=== PATIENT | female | born 1945 | race Caucasian/White ===

== ENCOUNTER 2021-12-08 16:04 | Inpatient (IN) ==
[2021-12-08] MEDS ORDERED: DILTIAZEM 50 MG/10 ML VIAL IV STA (16:16)
[2021-12-08] MEDS ORDERED: SODIUM CHLORIDE 0.9% 1,000 ML IV STA (16:16)
[2021-12-08] MEDS: DILTIAZEM INJ 100 MG in SODIUM CHLORIDE 0.9% 100 ML IV SCH ×2 (16:38→23:51)
[2021-12-08 16:47] LABS: Basophils % 0.2 % (0.0-0.8); Eosinophils # 0.1 10*3/uL (0.0-0.87); Eosinophils % 0.8 % (0.00-10.9); Hematocrit 46.4 VOL% (35.7-47.0); Hemoglobin 14.6 GM/DL (12.0-16.0); Immature Granulocytes % 0.6 %; Immature Granulocytes Absolute 0.05 #; Lymphocytes % 23.4 % (21.3-54.2); Mean Corpuscular HGB Conc 31.5 GM/DL (32-36); Mean Corpuscular Volume 101.5 FL (87-102); Mean Platelet Volume 10.8 FL (9.6-12.0); Monocytes % 8.4 % (1.7-12.7); NRBC # 0.02 10*3/uL; Neutrophils % 66.6 % (38.7-73.9); Platelet Count 388 T/CUMM (130-400); Red Blood Count 4.57 MC/CUMM (3.8-5.5); Red Cell Distribution Width 15.7 % (9.3-17.3); White Blood Count 8.6 T/CUMM (4-12)
[2021-12-08 17:18] LABS: INR 1.1; PT Patient Result 11.9 SECS (10.5-12.0); Partial Thromboplastin Time 26.4 SECS (23.8-32.1)
[2021-12-08 17:41] LABS: Bacteria,Urine Occasional /HPF (Few); Hyaline Casts,Urine 4 /LPF (0-3); Mucus,Urine Occasional /LPF (Occasional); RBC,Urine 2 /HPF (0-4)
[2021-12-08 17:42] LABS: Bilirubin,Urine Small mg/dL (Negative); Blood, Urine Trace mg/dL (Negative); Glucose,Urine (UA) Negative (Negative); Ketones,Urine Negative (Negative); Nitrite,Urine Negative (Negative); Protein,Urine 2+ mg/dL (Negative); Urine Appearance Clear (Clear); Urine Color Yellow (Yellow); Urine Specific Gravity 1.025 (1.001-1.035); Urine pH 5.5 (4.5-8.0)
[2021-12-08 18:32] LABS: Calcium 8.6 MG/DL (8.5-10.1)
[2021-12-08 18:33] LABS: Albumin 3.6 G/DL (3.4-5.0); Bilirubin,Total 0.9 MG/DL (0.20-1.00); Osmolality,Calculated 284.7 MOS/KG (273-304); Potassium 4.3 MMOL/L (3.5-5.1); Thyroid Stimulating Hormone 20.4 uIU/ml (0.358-3.74); Total Protein 7.1 G/DL (6.4-8.2)
[2021-12-08] MEDS ORDERED: GLUCAGON 1 MG VIAL IM PRN (20:34)
[2021-12-08] MEDS ORDERED: DEXTROSE 10% 250 ML BAG IV PRN (20:38)
[2021-12-08] MEDS ORDERED: ATORVASTATIN 20 MG TABLET PO SCH (21:00)
[2021-12-08] MEDS ORDERED: APIXABAN 2.5 MG TABLET PO SCH (21:00)
[2021-12-08] MEDS: METOPROLOL TARTRATE 25 MG TABLET PO SCH (21:50)
[2021-12-08] MEDS: ENOXAPARIN 40 MG/0.4 ML SYRINGE SUBCUT SCH (21:51)
[2021-12-09] MEDS ORDERED: OLANZapine 5 MG TABLET PO ONE (01:10)
[2021-12-09] MEDS ORDERED: SODIUM CHLORIDE 0.9% 500 ML IV STA (02:35)
[2021-12-09 04:14] LABS: Basophils % 0.3 % (0.0-0.8); Eosinophils # 0.1 10*3/uL (0.0-0.87); Eosinophils % 0.8 % (0.00-10.9); Hematocrit 46.4 VOL% (35.7-47.0); Hemoglobin 14.2 GM/DL (12.0-16.0); Immature Granulocytes % 0.8 %; Immature Granulocytes Absolute 0.08 #; Lymphocytes # 1.2 10*3/uL (1.4-4.0); Lymphocytes % 12.2 % (21.3-54.2); Mean Corpuscular HGB Conc 30.6 GM/DL (32-36); Mean Corpuscular Volume 103.3 FL (87-102); Mean Platelet Volume 10.3 FL (9.6-12.0); Monocytes % 8.6 % (1.7-12.7); NRBC # 0.04 10*3/uL; Neutrophils % 77.3 % (38.7-73.9); Platelet Count 327 T/CUMM (130-400); Red Blood Count 4.49 MC/CUMM (3.8-5.5); Red Cell Distribution Width 15.7 % (9.3-17.3); White Blood Count 9.6 T/CUMM (4-12)
[2021-12-09] MEDS: LEVOTHYROXINE 100 MCG TABLET PO SCH (06:30)
[2021-12-09 07:10] LABS: Albumin 3.1 G/DL (3.4-5.0); Calcium 8.4 MG/DL (8.5-10.1); Potassium 4.3 MMOL/L (3.5-5.1); Risk Ratio 6.59; Total Protein 6.7 G/DL (6.4-8.2); VLDL Cholesterol 22.4 MG/DL
[2021-12-09] MEDS: SODIUM BICARB INJ 100 MEQ in DEXTROSE 5% 1,000 ML IV SCH ×3 (08:27→22:54)
[2021-12-09] MEDS ORDERED: PANTOPRAZOLE 40 MG TABLET PO SCH (09:00)
[2021-12-09] MEDS ORDERED: LEVOTHYROXINE 88 MCG TABLET PO SCH (09:00)
[2021-12-09 09:27] LABS: Hepatitis B Surface Ag Quant < 0.10 Index; Hepatitis B Surface Ag Result Non-Reactive (NonReactive); Hepatitis C Virus Ab Quant 0.03 Index; Hepatitis C Virus Ab Result Non-Reactive (NonReactive)
[2021-12-09 10:13] LABS: Barbiturates Screen,Urine Negative (Negative); Benzodiazepines Screen,Urine Negative (Negative); Cannabinoid Screen,Urine Negative (Negative); Opiate Screen,Urine Negative (Negative); Phencyclidine Screen,Urine Negative (Negative)
[2021-12-09] MEDS: PANTOPRAZOLE 40 MG TABLET PO SCH (10:47)
[2021-12-09] MEDS: SERTRALINE 25 MG TABLET PO SCH (10:47)
[2021-12-09] MEDS: METOPROLOL TARTRATE 25 MG TABLET PO SCH ×2 (10:47→20:25)
[2021-12-09] MEDS: ENOXAPARIN 40 MG/0.4 ML SYRINGE SUBCUT SCH ×2 (10:48→20:27)
[2021-12-09] MEDS: DILTIAZEM 30 MG TABLET PO SCH ×3 (12:29→23:05)
[2021-12-09] MEDS: ASPIRIN EC 81 MG TABLET PO SCH (12:29)
[2021-12-09] MEDS ORDERED: DIGOXIN 0.5 MG/2 ML AMP IV ONE (13:50)
[2021-12-09] MEDS ORDERED: METOPROLOL TARTRATE 25 MG TABLET PO ONE (16:28)
[2021-12-09] MEDS ORDERED: TUBERCULIN SKIN TEST 0.1 ML SYRINGE INTRADERM ONE (17:08)
[2021-12-09] MEDS ORDERED: DILTIAZEM CD 120 MG CAPSULE PO SCH (21:00)
[2021-12-10 05:35] LABS: Basophils % 0.3 % (0.0-0.8); Eosinophils # 0.1 10*3/uL (0.0-0.87); Eosinophils % 1.6 % (0.00-10.9); Hematocrit 31.4 VOL% (35.7-47.0); Immature Granulocytes % 0.3 %; Immature Granulocytes Absolute 0.02 #; Lymphocytes # 0.7 10*3/uL (1.4-4.0); Lymphocytes % 9.9 % (21.3-54.2); Mean Corpuscular HGB Conc 31.8 GM/DL (32-36); Mean Corpuscular Volume 100.3 FL (87-102); Monocytes % 8.7 % (1.7-12.7); Neutrophils % 79.2 % (38.7-73.9); Platelet Count 231 T/CUMM (130-400); Red Blood Count 3.13 MC/CUMM (3.8-5.5); Red Cell Distribution Width 15.2 % (9.3-17.3); White Blood Count 6.9 T/CUMM (4-12)
[2021-12-10 05:59] LABS: Bilirubin,Total 0.6 MG/DL (0.20-1.00); Calcium 6.5 MG/DL (8.5-10.1); Osmolality,Calculated 295.2 MOS/KG (273-304); Potassium 2.6 MMOL/L (3.5-5.1); Total Protein 4.5 G/DL (6.4-8.2)
[2021-12-10] MEDS: DILTIAZEM 30 MG TABLET PO SCH ×2 (06:07→11:34)
[2021-12-10] MEDS: LEVOTHYROXINE 100 MCG TABLET PO SCH (06:08)
[2021-12-10 07:21] LABS: Albumin 2.3 G/DL (3.4-5.0); Bilirubin,Total 0.7 MG/DL (0.20-1.00); Calcium 7.8 MG/DL (8.5-10.1); Osmolality,Calculated 284.3 MOS/KG (273-304); Potassium 3.1 MMOL/L (3.5-5.1)
[2021-12-10] MEDS ORDERED: POTASSIUM CHLORIDE 20 MEQ TABLET PO ONE ×2 (07:43→14:31)
[2021-12-10] MEDS: METOPROLOL TARTRATE 25 MG TABLET PO SCH (09:29)
[2021-12-10] MEDS: PANTOPRAZOLE 40 MG TABLET PO SCH (09:29)
[2021-12-10] MEDS: SERTRALINE 25 MG TABLET PO SCH (09:29)
[2021-12-10] MEDS: metroNIDAZOLE INJ 500 MG/100 ML PREMIX IV SCH ×2 (09:30→18:14)
[2021-12-10] MEDS: LEVOFLOXACIN INJ 500 MG/100 ML PREMIX IV SCH (09:30)
[2021-12-10] MEDS: ENOXAPARIN 40 MG/0.4 ML SYRINGE SUBCUT SCH ×2 (09:30→21:07)
[2021-12-10] MEDS: ASPIRIN EC 81 MG TABLET PO SCH (09:32)
[2021-12-10] MEDS: SODIUM BICARB INJ 100 MEQ in DEXTROSE 5% 1,000 ML IV SCH (11:34)
[2021-12-10] MEDS ORDERED: DIGOXIN 0.5 MG/2 ML AMP IV ONE (15:52)
[2021-12-10] MEDS ORDERED: MAGNESIUM SULF RIDER 2 GM/50 ML PREMIX IV ONE (15:52)
[2021-12-10] MEDS: METOPROLOL TARTRATE 50 MG TABLET PO SCH ×2 (16:51→21:06)
[2021-12-11] MEDS: metroNIDAZOLE INJ 500 MG/100 ML PREMIX IV SCH ×3 (02:04→16:51)
[2021-12-11 05:35] LABS: Basophils % 0.3 % (0.0-0.8); Eosinophils # 0.1 10*3/uL (0.0-0.87); Eosinophils % 0.9 % (0.00-10.9); Immature Granulocytes % 0.9 %; Immature Granulocytes Absolute 0.06 #; Lymphocytes # 0.5 10*3/uL (1.4-4.0); Lymphocytes % 8.2 % (21.3-54.2); Mean Corpuscular HGB Conc 28.8 GM/DL (32-36); Mean Corpuscular Volume 106.8 FL (87-102); NRBC # 0.03 10*3/uL; Neutrophils % 78.7 % (38.7-73.9); Red Blood Count 2.34 MC/CUMM (3.8-5.5); Red Cell Distribution Width 15.4 % (9.3-17.3); White Blood Count 6.5 T/CUMM (4-12)
[2021-12-11 05:36] LABS: Hemoglobin 7.2 GM/DL (12.0-16.0); Platelet Count 167 T/CUMM (130-400)
[2021-12-11] MEDS: LEVOTHYROXINE 100 MCG TABLET PO SCH (05:46)
[2021-12-11 06:18] LABS: Albumin 2.1 G/DL (3.4-5.0); Bilirubin,Total 0.7 MG/DL (0.20-1.00); Calcium 7.1 MG/DL (8.5-10.1); Osmolality,Calculated 284.4 MOS/KG (273-304); Potassium 4.4 MMOL/L (3.5-5.1); Total Protein 5.1 G/DL (6.4-8.2)
[2021-12-11 06:21] LABS: Eosinophils 1 % (0-10); Hypochromia 1+; Lymphocytes 12 % (20-55); Microcytosis 1+; Platelet Estimate Adequate; Segmented Neutrophils 77 % (50-85); Total Cells Counted 100
[2021-12-11 09:24] LABS: Hematocrit 39.8 VOL% (35.7-47.0); Hemoglobin 12.2 GM/DL (12.0-16.0)
[2021-12-11] MEDS: LEVOFLOXACIN INJ 500 MG/100 ML PREMIX IV SCH (09:36)
[2021-12-11] MEDS: ENOXAPARIN 40 MG/0.4 ML SYRINGE SUBCUT SCH ×2 (09:37→20:41)
[2021-12-11] MEDS: METOPROLOL TARTRATE 50 MG TABLET PO SCH ×3 (09:37→23:09)
[2021-12-11] MEDS: PANTOPRAZOLE 40 MG TABLET PO SCH (09:37)
[2021-12-11] MEDS: SERTRALINE 25 MG TABLET PO SCH (09:37)
[2021-12-11] MEDS: ASPIRIN EC 81 MG TABLET PO SCH (09:38)
[2021-12-11 09:41] LABS: % Iron Saturation 8.6 % (18-50); Ferritin 63.2 ng/mL (8-252)
[2021-12-11 09:42] LABS: Folate 10.64 NG/ML (5.38-24.0)
[2021-12-11] MEDS ORDERED: MAGNESIUM SULF RIDER 2 GM/50 ML PREMIX IV ONE (13:07)
[2021-12-11] MEDS: DIGOXIN 0.125 MG TABLET PO SCH (14:12)
[2021-12-11 14:23] LABS: Calcium 8.4 MG/DL (8.5-10.1); Osmolality,Calculated 280.5 MOS/KG (273-304); Potassium 4.4 MMOL/L (3.5-5.1)
[2021-12-11 18:05] LABS: Bilirubin,Urine Small mg/dL (Negative); Glucose,Urine (UA) Negative (Negative); Ketones,Urine Trace mg/dL (Negative); Nitrite,Urine Positive (Negative); Protein,Urine 100 mg/dL (Negative); RBC,Urine 3879 /HPF (0-4); Urine Appearance Clear (Clear); Urine Color Yellow (Yellow); Urine Specific Gravity 1.025 (1.001-1.035); Urine pH 5.5 (4.5-8.0)
[2021-12-11 18:06] LABS: Blood, Urine Large mg/dL (Negative)
[2021-12-11 19:25] LABS: Hematocrit 41.3 VOL% (35.7-47.0); Hemoglobin 12.7 GM/DL (12.0-16.0)
[2021-12-12] MEDS: metroNIDAZOLE INJ 500 MG/100 ML PREMIX IV SCH (01:09)
[2021-12-12] MEDS ORDERED: methylPREDNISolone SOD SUC 40 MG/1 ML VIAL IV ONE (04:10)
[2021-12-12] MEDS: ALBUTEROL/IPRATROPIUM 3 ML NEB RESP TX SCH ×4 (04:36→19:10)
[2021-12-12 04:37] LABS: Basophils % 0.3 % (0.0-0.8); Eosinophils # 0.1 10*3/uL (0.0-0.87); Eosinophils % 0.8 % (0.00-10.9); Hematocrit 37.7 VOL% (35.7-47.0); Hemoglobin 11.4 GM/DL (12.0-16.0); Immature Granulocytes % 0.6 %; Immature Granulocytes Absolute 0.06 #; Lymphocytes # 1.1 10*3/uL (1.4-4.0); Lymphocytes % 10.5 % (21.3-54.2); Mean Corpuscular HGB Conc 30.2 GM/DL (32-36); Mean Corpuscular Volume 103.6 FL (87-102); Mean Platelet Volume 10.2 FL (9.6-12.0); Monocytes % 11.8 % (1.7-12.7); Platelet Count 264 T/CUMM (130-400); Red Blood Count 3.64 MC/CUMM (3.8-5.5); White Blood Count 10.5 T/CUMM (4-12)
[2021-12-12 04:57] LABS: Calcium 8.2 MG/DL (8.5-10.1); Potassium 4.2 MMOL/L (3.5-5.1)
[2021-12-12] MEDS: LEVOTHYROXINE 100 MCG TABLET PO SCH (06:21)
[2021-12-12 06:34] LABS: Albumin 2.4 G/DL (3.4-5.0); Bilirubin,Total 0.9 MG/DL (0.20-1.00); Calcium 8.3 MG/DL (8.5-10.1); Osmolality,Calculated 275.8 MOS/KG (273-304); Potassium 4.3 MMOL/L (3.5-5.1); Total Protein 5.9 G/DL (6.4-8.2)
[2021-12-12] MEDS: PANTOPRAZOLE 40 MG TABLET PO SCH (09:35)
[2021-12-12] MEDS: METOPROLOL TARTRATE 50 MG TABLET PO SCH ×2 (09:35→15:51)
[2021-12-12] MEDS: SERTRALINE 25 MG TABLET PO SCH (09:35)
[2021-12-12] MEDS: ASPIRIN EC 81 MG TABLET PO SCH (09:35)
[2021-12-12] MEDS: LEVOFLOXACIN INJ 500 MG/100 ML PREMIX IV SCH (09:35)
[2021-12-12] MEDS: ENOXAPARIN 40 MG/0.4 ML SYRINGE SUBCUT SCH ×2 (09:36→22:28)
[2021-12-12] MEDS: DIGOXIN 0.125 MG TABLET PO SCH (13:20)
[2021-12-12] MEDS: METOPROLOL SUCCINATE XL 25 MG TABLET PO SCH (22:29)
[2021-12-13] MEDS: ALBUTEROL/IPRATROPIUM 3 ML NEB RESP TX SCH ×4 (00:15→19:37)
[2021-12-13 05:18] LABS: Basophils % 0.2 % (0.0-0.8); Eosinophils % 0.2 % (0.00-10.9); Hematocrit 36.9 VOL% (35.7-47.0); Hemoglobin 11.6 GM/DL (12.0-16.0); Immature Granulocytes % 0.7 %; Immature Granulocytes Absolute 0.09 #; Lymphocytes # 0.8 10*3/uL (1.4-4.0); Lymphocytes % 5.7 % (21.3-54.2); Mean Corpuscular HGB Conc 31.4 GM/DL (32-36); Mean Corpuscular Volume 99.7 FL (87-102); Mean Platelet Volume 11.4 FL (9.6-12.0); Monocytes % 7.6 % (1.7-12.7); Neutrophils % 85.6 % (38.7-73.9); Platelet Count 203 T/CUMM (130-400); Red Cell Distribution Width 15.2 % (9.3-17.3); White Blood Count 13.2 T/CUMM (4-12)
[2021-12-13 05:38] LABS: Calcium 8.3 MG/DL (8.5-10.1); Osmolality,Calculated 273.1 MOS/KG (273-304); Potassium 4.3 MMOL/L (3.5-5.1)
[2021-12-13] MEDS: LEVOTHYROXINE 100 MCG TABLET PO SCH (07:30)
[2021-12-13] MEDS: LEVOFLOXACIN INJ 500 MG/100 ML PREMIX IV SCH (09:03)
[2021-12-13] MEDS: ENOXAPARIN 40 MG/0.4 ML SYRINGE SUBCUT SCH ×2 (09:03→21:36)
[2021-12-13] MEDS: SERTRALINE 25 MG TABLET PO SCH (09:03)
[2021-12-13] MEDS: PANTOPRAZOLE 40 MG TABLET PO SCH (09:03)
[2021-12-13] MEDS: METOPROLOL SUCCINATE XL 25 MG TABLET PO SCH (09:04)
[2021-12-13] MEDS: ASPIRIN EC 81 MG TABLET PO SCH (09:14)
[2021-12-13] MEDS: ONDANSETRON 4 MG/2 ML VIAL IV PRN (10:14)
[2021-12-13] MEDS: DIGOXIN 0.125 MG TABLET PO SCH (13:56)
[2021-12-13] MEDS: METOPROLOL SUCCINATE XL 100 MG TABLET PO SCH (21:36)
[2021-12-14] MEDS: ALBUTEROL/IPRATROPIUM 3 ML NEB RESP TX SCH ×4 (00:17→19:35)
[2021-12-14] MEDS: LEVOTHYROXINE 100 MCG TABLET PO SCH (06:34)
[2021-12-14 08:04] LABS: Basophils % 0.4 % (0.0-0.8); Eosinophils # 0.2 10*3/uL (0.0-0.87); Eosinophils % 2.3 % (0.00-10.9); Hematocrit 35.8 VOL% (35.7-47.0); Hemoglobin 10.9 GM/DL (12.0-16.0); Immature Granulocytes % 0.9 %; Immature Granulocytes Absolute 0.07 #; Lymphocytes # 0.9 10*3/uL (1.4-4.0); Lymphocytes % 11.1 % (21.3-54.2); Mean Corpuscular HGB Conc 30.4 GM/DL (32-36); Mean Corpuscular Volume 102.3 FL (87-102); Mean Platelet Volume 9.8 FL (9.6-12.0); Monocytes % 12.5 % (1.7-12.7); Neutrophils % 72.8 % (38.7-73.9); Platelet Count 290 T/CUMM (130-400); Red Cell Distribution Width 15.4 % (9.3-17.3); White Blood Count 8.1 T/CUMM (4-12)
[2021-12-14 08:22] LABS: Albumin 2.2 G/DL (3.4-5.0); Bilirubin,Total 0.4 MG/DL (0.20-1.00); Calcium 8.7 MG/DL (8.5-10.1); Osmolality,Calculated 275.5 MOS/KG (273-304); Potassium 4.5 MMOL/L (3.5-5.1); Total Protein 5.5 G/DL (6.4-8.2)
[2021-12-14] MEDS ORDERED: ETOMIDATE 40 MG/20 ML VIAL IV ONE (10:21)
[2021-12-14] MEDS ORDERED: LIDOCAINE 2% 5 ML VIAL ONE (10:21)
[2021-12-14] MEDS: SODIUM CHLORIDE 0.9% 1,000 ML IV SCH (10:33)
[2021-12-14] MEDS: METOPROLOL SUCCINATE XL 100 MG TABLET PO SCH ×2 (12:32→20:33)
[2021-12-14] MEDS: SERTRALINE 25 MG TABLET PO SCH (12:32)
[2021-12-14] MEDS: LEVOFLOXACIN INJ 500 MG/100 ML PREMIX IV SCH (12:32)
[2021-12-14] MEDS: ASPIRIN EC 81 MG TABLET PO SCH (12:32)
[2021-12-14] MEDS: PANTOPRAZOLE 40 MG TABLET PO SCH (12:33)
[2021-12-14] MEDS: ENOXAPARIN 40 MG/0.4 ML SYRINGE SUBCUT SCH ×2 (12:42→20:34)
[2021-12-14] MEDS: DIGOXIN 0.125 MG TABLET PO SCH (14:21)
[2021-12-15] MEDS: ALBUTEROL/IPRATROPIUM 3 ML NEB RESP TX SCH ×4 (00:10→19:35)
[2021-12-15 05:07] LABS: Basophils # 0.1 10*3/uL (0.0-0.2); Basophils % 0.6 % (0.0-0.8); Eosinophils # 0.2 10*3/uL (0.0-0.87); Eosinophils % 2.1 % (0.00-10.9); Hematocrit 42.7 VOL% (35.7-47.0); Immature Granulocytes % 0.5 %; Immature Granulocytes Absolute 0.04 #; Lymphocytes # 1.2 10*3/uL (1.4-4.0); Lymphocytes % 15.1 % (21.3-54.2); Mean Corpuscular HGB Conc 30.4 GM/DL (32-36); Mean Corpuscular Volume 103.1 FL (87-102); Mean Platelet Volume 10.8 FL (9.6-12.0); Monocytes % 16.5 % (1.7-12.7); Neutrophils % 65.2 % (38.7-73.9); Platelet Count 275 T/CUMM (130-400); Red Blood Count 4.14 MC/CUMM (3.8-5.5); Red Cell Distribution Width 15.4 % (9.3-17.3); White Blood Count 7.9 T/CUMM (4-12)
[2021-12-15 05:15] LABS: Eosinophils 3 % (0-10); Lymphocytes 11 % (20-55); Segmented Neutrophils 65 % (50-85); Total Cells Counted 100
[2021-12-15 05:16] LABS: Albumin 2.6 G/DL (3.4-5.0); Bilirubin,Total 0.4 MG/DL (0.20-1.00); Calcium 8.8 MG/DL (8.5-10.1); Osmolality,Calculated 273.8 MOS/KG (273-304); Potassium 4.8 MMOL/L (3.5-5.1); Total Protein 6.3 G/DL (6.4-8.2)
[2021-12-15 05:16] LABS: Platelet Estimate Adequate
[2021-12-15] MEDS: LEVOTHYROXINE 100 MCG TABLET PO SCH (05:31)
[2021-12-15] MEDS: PANTOPRAZOLE 40 MG TABLET PO SCH (09:24)
[2021-12-15] MEDS: METOPROLOL SUCCINATE XL 100 MG TABLET PO SCH (09:24)
[2021-12-15] MEDS: ASPIRIN EC 81 MG TABLET PO SCH (09:24)
[2021-12-15] MEDS: SERTRALINE 25 MG TABLET PO SCH (09:24)
[2021-12-15] MEDS: LEVOFLOXACIN INJ 500 MG/100 ML PREMIX IV SCH (09:25)
[2021-12-15] MEDS: ENOXAPARIN 40 MG/0.4 ML SYRINGE SUBCUT SCH (09:25)
[2021-12-15] MEDS: ONDANSETRON 4 MG/2 ML VIAL IV PRN (11:52)
[2021-12-15] MEDS: DIGOXIN 0.125 MG TABLET PO SCH (13:37)
[2021-12-15] MEDS: SODIUM CHLORIDE 0.9% 1,000 ML IV SCH (13:49)
[2021-12-15] MEDS: APIXABAN 2.5 MG TABLET PO SCH (20:59)
[2021-12-15] MEDS: METOPROLOL SUCCINATE XL 50 MG TABLET PO SCH (20:59)
[2021-12-16] MEDS: ALBUTEROL/IPRATROPIUM 3 ML NEB RESP TX SCH ×2 (00:10→07:25)
[2021-12-16 05:40] LABS: Basophils % 0.5 % (0.0-0.8); Eosinophils # 0.1 10*3/uL (0.0-0.87); Eosinophils % 1.3 % (0.00-10.9); Hematocrit 38.4 VOL% (35.7-47.0); Immature Granulocytes % 0.7 %; Immature Granulocytes Absolute 0.05 #; Lymphocytes # 0.7 10*3/uL (1.4-4.0); Lymphocytes % 9.1 % (21.3-54.2); Mean Corpuscular HGB Conc 31.3 GM/DL (32-36); Mean Corpuscular Volume 98.5 FL (87-102); Mean Platelet Volume 9.8 FL (9.6-12.0); Neutrophils % 75.4 % (38.7-73.9); Platelet Count 285 T/CUMM (130-400); White Blood Count 7.6 T/CUMM (4-12)
[2021-12-16 06:11] LABS: Albumin 2.5 G/DL (3.4-5.0); Bilirubin,Total 0.6 MG/DL (0.20-1.00); Calcium 8.8 MG/DL (8.5-10.1); Osmolality,Calculated 275.7 MOS/KG (273-304); Potassium 4.3 MMOL/L (3.5-5.1)
[2021-12-16] MEDS: LEVOTHYROXINE 100 MCG TABLET PO SCH (06:41)
[2021-12-16 08:31] VITALS: BP 152/98
[2021-12-16] MEDS ORDERED: SACUBITRIL/VALSARTAN 49-51 MG TABLET PO SCH (09:00)
[2021-12-16] MEDS: SERTRALINE 25 MG TABLET PO SCH (09:55)
[2021-12-16] MEDS: PANTOPRAZOLE 40 MG TABLET PO SCH (09:55)
[2021-12-16] MEDS: METOPROLOL SUCCINATE XL 50 MG TABLET PO SCH (09:56)
[2021-12-16] MEDS: ASPIRIN EC 81 MG TABLET PO SCH (09:56)
[2021-12-16] MEDS: APIXABAN 2.5 MG TABLET PO SCH (09:56)
[2021-12-16] MEDS: LEVOFLOXACIN INJ 500 MG/100 ML PREMIX IV SCH (10:40)
[2021-12-16] MEDS: SODIUM CHLORIDE 0.9% 1,000 ML IV SCH (10:41)
== END 2021-12-16 10:39 | disposition home health service (06) | DRG 308 ==
LOC: EDUNIT# → EDBD → N.ED 16:04 → SUATTDRO 20:36 → N.EDINP 20:36 → N.TELEN 12-09 08:33
PROVIDERS: ADMIT Internal Medicine; ATTEND Internal Medicine